=== PATIENT | female | born 1955 | race Two or more races ===

== ENCOUNTER 2020-08-19 20:22 | Emergency (ER) | payer BC ==
[~2020-08-19] VITALS: Ht 160 cm; Wt 69.0 kg
[2020-08-19] MEDS ORDERED: LOSARTAN POTASSIUM 100 MG TABLET PO ONE (22:15)
[2020-08-19] MEDS ORDERED: ASPIRIN 81MG TABLET PO ONE (22:15)
[2020-08-19 22:40] LABS: BASOPHILS % 0.6 % (0.0-2.0); EOSINOPHILS % 3.1 % (0.0-5.0); HEMATOCRIT. 36.9 % (36.0-48.0); HEMOGLOBIN. 12.8 g/dL (12.0-16.0); LYMPHOCYTES % 33.1 % (20.0-50.0); MEAN CORPUSCULAR HEMOGLOBIN 31.8 pg (28.0-32.0); MEAN CORPUSCULAR VOLUME 91.6 fL (81.0-99.0); MEAN PLATELET VOLUME 7.9 fl (7.4-10.4); MONOCYTES % 9.7 % (2.0-8.0); NEUTROPHILS % 53.5 % (40.0-76.0); PLATELET 331 x1000/uL (130-400); RED BLOOD CELL COUNT 4.03 mill/uL (4.2-5.4)
[2020-08-19 22:46] LABS: CHLORIDE 109 mEq/L (98-107)
[2020-08-19 23:30] LABS: CLARITY URINE CLEAR (CLEAR); COLOR URINE YELLOW (YELLOW); KETONES URINE NEGATIVE (NEGATIVE); LEUKOCYTE ESTERASE URINE 1+ (NEGATIVE); NITRITE URINE NEGATIVE (NEGATIVE); OCCULT BLOOD URINE NEGATIVE (NEGATIVE); PROTEIN URINE NEGATIVE (NEGATIVE); SPECIFIC GRAVITY URINE 1.012 (1.005-1.030); UROBILINOGEN URINE 0.2 E.U./dL (0.2-1.0)
[2020-08-20 02:19] VITALS: BP 141/70
== END 2020-08-20 02:27 | disposition home or self-care (01) ==
LOC: ER 20:22
DX: R53.1 Weakness (principal); R07.89 Other chest pain; M54.2 Cervicalgia
CPT/HCPCS: 36415; 71045; 80053; 81003; 83880; 84484; 85025; 93005; 99285; Z7610